=== PATIENT | female | born 1990 | race Caucasian/White ===

== ENCOUNTER 2022-08-31 23:45 | Inpatient (IN) | payer BC ==
[2022-09-01] MEDS ORDERED: Calcium Gluc 4.6 MEQ/10 ML (100 MG/ML) SLOW IVP PRN ×2 (01:15→15:54)
[2022-09-01] MEDS ORDERED: Lorazepam 2 MG/ML VIAL SLOW IVP PRN ×2 (01:15→15:54)
[2022-09-01 01:33] LABS: #Monocytes 0.7 10x3/uL (0.0-1.1); #Neutrophils 10.3 10x3/uL (1.5-8.4); %Basophils 0.3 % (0.0-2.0); %Eosinophils 0.2 % (0.0-6.0); %Lymphocytes 3.2 % (18.0-47.0); %Monocytes 6.1 % (0.0-10.0); %Neutrophils 89.8 % (40.0-75.0); Hemoglobin 13.3 g/dL (12.0-15.5); Mean Corpuscular Hemoglobin 32.5 pg (27.0-33.0); Mean Corpuscular Volume 90.2 fl (81.6-98.3); Mean Platelet Volume 11.5 fl (7.4-10.4); Platelet Count 198 10x3/uL (150-450); RBC Distribution Width 14.1 % (11.5-14.5); Red Blood Cell (RBC) Count 4.09 10x6/uL (3.90-5.03); White Blood Cell (WBC) Count 11.4 10x3/uL (3.5-10.5)
[2022-09-01 02:29] LABS: Creatinine, Urine 94.37 mg/dL (47-110)
[2022-09-01 03:48] LABS: ALT (SGPT) 9 U/L (8-55); AST (SGOT) 12 U/L (5-34); Albumin 3.1 g/dL (3.5-5.0); Alkaline Phosphatase 144 U/L (40-110); Anion Gap 11 mmol/L (10-20); BUN (Urea Nitrogen) 7 mg/dL (7.0-18.7); Bilirubin, Total 0.8 mg/dL (0.2-1.2); Calc. Creatinine Clearance 194 mL/min (70-130); Calcium 10.1 mg/dL (7.8-10.44); Carbon Dioxide 19 mmol/L (22-29); Chloride 107 mmol/L (98-107); Estimated GFR 121; Globulin 2.7 g/dL (2.4-3.5); Glucose 95 mg/dL (70-105); Potassium 4.1 mmol/L (3.5-5.1); Protein, Total 5.8 g/dL (6.0-8.3); Sodium 133 mmol/L (136-145)
[2022-09-01] MEDS ORDERED: hydrALAZINE 20 MG/ML VIAL SLOW IVP PRN ×2 (04:14→15:54)
[2022-09-01] MEDS ORDERED: Famotidine/PF 20 mg/2ml Vial SLOW IVP PRN (04:14)
[2022-09-01] MEDS ORDERED: Bicitra 30 ML UDCUP PO PRN (04:14)
[2022-09-01] MEDS ORDERED: Ondansetron PF 4 MG/2 ML Vial IVP PRN ×3 (04:14→15:54)
[2022-09-01] MEDS ORDERED: Promethazine HCl 25 MG/ML VIAL IM PRN ×2 (04:14→07:01)
[2022-09-01] MEDS ORDERED: Acetaminophen 500 MG TAB PO PRN (04:14)
[2022-09-01] MEDS ORDERED: CEFAZOLIN 2 GM in Sodium Chloride 0.9% 100 ML IVPB SCH (04:15)
[2022-09-01] MEDS ORDERED: Lactated Ringer's 1,000 ML IV SCH (04:45)
[2022-09-01] MEDS ORDERED: CEFAZOLIN 2 GM VIAL ONE (05:40)
[2022-09-01 05:55] LABS: Syphilis Antibody Nonreactive (Nonreactive); Syphilis Antibody Index 0.05 S/CO (<1.00 Non-Reactive)
[2022-09-01 05:56] LABS: HBSAg Index 0.22 S/CO (0-0.99); Hep B Surf Ag Non-Reactive S/CO (NonReactive)
[2022-09-01] MEDS ORDERED: PHENYLEPHRINE-NS 100 MCG/ML 10 ML SYRINGE ONE (06:08)
[2022-09-01] MEDS ORDERED: Ketorolac Tromethamine 30 MG/ML VIAL ONE (06:08)
[2022-09-01] MEDS ORDERED: ePHEDrine Sulfate 50 MG/10 ML VIAL ONE (06:08)
[2022-09-01] MEDS ORDERED: Morphine PF 10 MG/10 ML VIAL ONE (06:08)
[2022-09-01] MEDS ORDERED: Oxytocin 10 UNITS/ML VIAL ONE ×2 (06:08→06:48)
[2022-09-01] MEDS ORDERED: Ondansetron PF 4 MG/2 ML Vial ONE (06:33)
[2022-09-01] MEDS ORDERED: Dexamethasone 4 mg/ml Vial ONE (06:33)
[2022-09-01] MEDS ORDERED: Meperidine HCl/PF 25 MG/ML VIAL SLOW IVP PRN (07:01)
[2022-09-01] MEDS ORDERED: Ketorolac Tromethamine 30 MG/ML VIAL IVP PRN (07:01)
[2022-09-01] MEDS ORDERED: Naloxone HCl 0.4 mg/ml Vial IV PRN (07:01)
[2022-09-01] MEDS ORDERED: Naloxone HCl 0.4 mg/ml Vial IVP PRN ×2 (07:01)
[2022-09-01] MEDS ORDERED: Moisturizing Cream (Eucerin) 113 GM JAR TOP PRN (07:01)
[2022-09-01] MEDS ORDERED: Promethazine HCl 25 MG SUPP PR PRN (07:01)
[2022-09-01] MEDS ORDERED: diphenhydrAMINE 50 MG/ML VIAL IVP PRN (07:01)
[2022-09-01] MEDS ORDERED: Ondansetron HCl/PF 4 MG/2 ML Vial IVP PRN (07:01)
[2022-09-01] MEDS ORDERED: Fentanyl 100 MCG/2 ML VIAL SLOW IVP PRN (07:01)
[2022-09-01] MEDS ORDERED: Magnesium Sulfate 20 gm/500 ml 20 GM/500 ML BAG ONE ×2 (07:06→15:52)
[2022-09-01] MEDS ORDERED: Ketorolac Tromethamine 30 MG/ML VIAL IVP SCH (07:15)
[2022-09-01] MEDS ORDERED: Communication Order-Pharmacy FS SCH (07:15)
[2022-09-01] MEDS: Magnesium Sulfate 20 gm/500 ml 20 GM/500 ML BAG IVPB SCH ×2 (07:20→15:55)
[2022-09-01] MEDS ORDERED: Lidocaine 1% (PF) 30 ML VIAL ONE (12:01)
[2022-09-01] MEDS ORDERED: diphenhydrAMINE 25 MG CAP PO PRN (15:54)
[2022-09-01] MEDS ORDERED: HYDROcodone/Acetaminophen 5/325 mg Tablet PO PRN ×2 (15:54)
[2022-09-01] MEDS ORDERED: Boostrix 0.5 ML (Tdap) VIAL (>/=7 yrs of age) IM ONE (15:54)
[2022-09-01] MEDS ORDERED: Lanolin Ointment 7 GM TUBE TOP PRN (15:54)
[2022-09-01] MEDS ORDERED: Bisacodyl 10 MG SUPP PR PRN (15:54)
[2022-09-01] MEDS ORDERED: Simethicone Chewable 80 MG TAB PO PRN (15:54)
[2022-09-01] MEDS: Docusate 100 MG CAP PO SCH (21:30)
[2022-09-01] MEDS: Ferrous Sulfate 325 MG TAB PO SCH (21:36)
[2022-09-02 02:38] VITALS: BMI 30.5
[2022-09-02 06:46] LABS: Hemoglobin 9.8 g/dL (12.0-15.5); Mean Corpuscular HGB CONC 34.6 g/dL (32.0-36.0); Mean Corpuscular Hemoglobin 31.8 pg (27.0-33.0); Mean Corpuscular Volume 91.9 fl (81.6-98.3); Mean Platelet Volume 10.9 fl (7.4-10.4); Platelet Count 151 10x3/uL (150-450); RBC Distribution Width 14.7 % (11.5-14.5); Red Blood Cell (RBC) Count 3.08 10x6/uL (3.90-5.03); White Blood Cell (WBC) Count 5.3 10x3/uL (3.5-10.5)
[2022-09-02] MEDS: Ferrous Sulfate 325 MG TAB PO SCH ×2 (07:32→22:39)
[2022-09-02] MEDS: Docusate 100 MG CAP PO SCH ×2 (08:14→22:39)
[2022-09-02] MEDS: Prenatal Vitamin 1 TAB PO SCH (08:14)
[2022-09-02] MEDS: Ibuprofen 800 MG TAB PO SCH ×2 (14:06→22:39)
[2022-09-03] MEDS: Ibuprofen 800 MG TAB PO SCH ×3 (05:17→23:18)
[2022-09-03] MEDS: Prenatal Vitamin 1 TAB PO SCH (08:03)
[2022-09-03] MEDS: Ferrous Sulfate 325 MG TAB PO SCH ×2 (08:03→23:18)
[2022-09-03] MEDS: Docusate 100 MG CAP PO SCH ×2 (08:03→23:18)
[2022-09-03] MEDS: Labetalol HCl 100 MG TAB PO SCH ×2 (08:52→23:18)
[2022-09-03] MEDS ORDERED: NIFEdipine XL 30 MG TAB PO SCH (09:00)
[2022-09-04] MEDS: Ibuprofen 800 MG TAB PO SCH (05:30)
[2022-09-04] MEDS: Labetalol HCl 100 MG TAB PO SCH (07:48)
[2022-09-04] MEDS: Ferrous Sulfate 325 MG TAB PO SCH (07:49)
[2022-09-04] MEDS: Prenatal Vitamin 1 TAB PO SCH (07:49)
[2022-09-04] MEDS: Docusate 100 MG CAP PO SCH (07:49)
[2022-09-04] MEDS ORDERED: Labetalol HCl 100 MG TAB PO SCH (08:05)
[2022-09-04 08:13] VITALS: TEMP 98
[2022-09-04 11:54] VITALS: BP 155/84
[2022-09-04] MEDS ORDERED: Labetalol HCl 200 MG TAB PO SCH (18:00)
== END 2022-09-04 12:10 | disposition home or self-care (01) | DRG 788 ==
LOC: CSHLD/OP 23:45 → CSHLD 09-01 04:09 → CSHPP 09-01 20:22
PROVIDERS: ADMIT Obstetrics & Gynecology; ATTEND Obstetrics & Gynecology
PROC: 10D00Z1 Extraction of Products of Conception, Low, Open Approach (ICD-10-PCS; principal; 2022-09-01)
DX: O13.4 Gestational [pregnancy-induced] hypertension without significant proteinuria, complicating childbirth (principal); Z3A.38 38 weeks gestation of pregnancy; Z37.0 Single live birth; O34.211 Maternal care for low transverse scar from previous cesarean delivery; E83.52 Hypercalcemia; O99.284 Endocrine, nutritional and metabolic diseases complicating childbirth
CPT/HCPCS: 36415; 51702; 80053; 82570; 84156; 85025; 85027; 86780; 86850; 86900; 86901; 87340; 99285; J1100; J1885; J2274; J2405; J2590; J3475